=== PATIENT | female | born 1940 | race Caucasian/White ===

== ENCOUNTER 2023-07-23 15:47 | Outpatient (CLI) | payer MEDICARE, SELFPAY | END 2023-07-23 15:48 | disposition home or self-care (01) | LOC: LKVREF 15:56 | PROVIDERS: PCP Family Medicine; Visit Provider Family Medicine | DX: D64.9 Anemia, unspecified (principal) | CPT/HCPCS: 82607 ==

== ENCOUNTER 2023-07-31 10:26 | Outpatient (CLI) | payer MEDICARE, SELFPAY ==
--- NOTE | 2023-07-31 11:55 | W.ANESCHARGE ---
Anesthesia Charges Start Date/Time Anesthesia Start Date: 07/31/23 Anesthesia Start Time: 11:33 Stop Date/Time Anesthesia Stop Date: 07/31/23 Anesthesia Stop Time: 12:26 Summary Extremes of Age - Over 70 or under 1: MDA
--- NOTE | 2023-07-31 12:32 | W.ANESCHARGE ---
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
== END 2023-07-31 10:27 | disposition home or self-care (01) ==
LOC: OP CLINIC 10:32
PROVIDERS: PCP Family Medicine; Visit Provider Surgery
DX: D50.9 Iron deficiency anemia, unspecified (principal); K57.30 Diverticulosis of large intestine without perforation or abscess without bleeding; K44.9 Diaphragmatic hernia without obstruction or gangrene; K31.7 Polyp of stomach and duodenum; K25.9 Gastric ulcer, unspecified as acute or chronic, without hemorrhage or perforation
CPT/HCPCS: 00813; 43239; 45378; 88305; 88313; 88341; 88342; 99100; J2704

== ENCOUNTER 2023-10-15 12:49 | Outpatient (CLI) | payer MEDICARE, SELFPAY | END 2023-10-15 12:50 | disposition home or self-care (01) | LOC: LKVREF 12:52 | PROVIDERS: PCP Family Medicine; Visit Provider Family Medicine | DX: K25.9 Gastric ulcer, unspecified as acute or chronic, without hemorrhage or perforation (principal); K44.9 Diaphragmatic hernia without obstruction or gangrene; R06.83 Snoring | CPT/HCPCS: 84443 ==

== ENCOUNTER 2023-11-06 12:14 | Outpatient (CLI) | payer MEDICARE, SELFPAY ==
--- NOTE | 2023-11-06 12:38 | W.ANESCHARGE ---
Anesthesia Charges Start Date/Time Anesthesia Start Date: 11/06/23 Anesthesia Start Time: 12:40 Stop Date/Time Anesthesia Stop Date: 11/06/23 Anesthesia Stop Time: 12:59 Summary Extremes of Age - Over 70 or under 1: MDA
--- NOTE | 2023-11-06 13:05 | W.ANESCHARGE ---
Anesthesia Charges Start Date/Time Anesthesia Start Date: 11/06/23 Anesthesia Start Time: 12:40 Stop Date/Time Anesthesia Stop Date: 11/06/23 Anesthesia Stop Time: 12:59
== END 2023-11-06 12:15 | disposition home or self-care (01) ==
LOC: OP CLINIC 12:14
PROVIDERS: PCP Family Medicine; Visit Provider Surgery
DX: K22.10 Ulcer of esophagus without bleeding (principal); K44.9 Diaphragmatic hernia without obstruction or gangrene; K31.7 Polyp of stomach and duodenum; Z87.11 Personal history of peptic ulcer disease
CPT/HCPCS: 00731; 43235; 99100; J2704

== ENCOUNTER 2023-11-21 13:55 | Outpatient (CLI) | payer MEDICARE, SELFPAY ==
--- NOTE | 2023-11-21 14:00 | CRLHL7_ITS ---
For Patients: As a result of the Century Cures Act, medical imaging exams and procedure reports are released immediately into your electronic medical record. You may view this report before your referring provider. If you have questions, please contact your health care provider. INDICATION: Thyroid cancer. Gastric ulcer. Evaluation of hiatal hernia. TECHNIQUE: CT chest without contrast. COMPARISON: None. FINDINGS: Lungs and pleura: No suspicious nodules or infiltrates. Scattered small bands of atelectasis or scarring. No pleural effusions, pleural thickening, or pneumothorax. Heart and vasculature: Heart size is normal. Thoracic aorta and pulmonary artery are normal in caliber. Trace coronary artery calcification. Lymph nodes/mediastinum: No mediastinal, hilar, or axillary adenopathy. [id number] hiatal hernia. Chest wall: No masses. Upper abdomen: No significant findings. Bones: Mild thoracic spondylosis. IMPRESSION: 1. No acute pulmonary findings. 2. Moderate to large hiatal hernia. Please note that all CT scans at this facility use dose modulation, iterative reconstruction, and/or weight-based dosing when appropriate to reduce radiation dose to as low as reasonably achievable. Dictated by Leonides De Jesus MD @ 11/22/2023 12:56:45 PM (Electronically Signed)
== END 2023-11-21 13:56 | disposition home or self-care (01) ==
PROVIDERS: PCP Family Medicine; Visit Provider Family Medicine
DX: K25.9 Gastric ulcer, unspecified as acute or chronic, without hemorrhage or perforation (principal); K44.9 Diaphragmatic hernia without obstruction or gangrene; R13.10 Dysphagia, unspecified
CPT/HCPCS: 71250

== ENCOUNTER 2023-12-24 11:04 | Outpatient (CLI) | payer MEDICARE, SELFPAY | END 2023-12-24 11:05 | disposition home or self-care (01) | PROVIDERS: PCP Family Medicine; Visit Provider Family Medicine | DX: D64.9 Anemia, unspecified (principal); C73 Malignant neoplasm of thyroid gland; Z13.21 Encounter for screening for nutritional disorder; K21.9 Gastro-esophageal reflux disease without esophagitis | CPT/HCPCS: 80053; 80061; 82652; 82728; 83540; 83550 ==

== ENCOUNTER 2024-07-10 12:55 | Outpatient (CLI) | payer MEDICARE, SELFPAY ==
--- NOTE | 2024-07-10 13:00 | CRLHL7_ITS ---
For Patients: As a result of the Century Cures Act, medical imaging exams and procedure reports are released immediately into your electronic medical record. You may view this report before your referring provider. If you have questions, please contact your health care provider. INDICATION: BILATERAL SCREENING MAMMOGRAM, ASYMPTOMATIC 84 Y/O FEMALE COMPARISON: 02/04/19, 12/03/17, 09/12/16 TECHNIQUE: CC and MLO views were obtained. These mammographic images have been obtained using full-field digital technique. These mammographic images were interpreted with the benefit of computer aided detection and tomosynthesis. BREAST COMPOSITION: There are scattered areas of fibroglandular density. FINDINGS: No suspicious findings. ASSESSMENT: BI-RADS 1 Negative RECOMMENDATION: Annual screening mammogram. A lay language report of this examination will be provided to the patient. Dictated by: Ross Alberto MD @ 07/18/2024 13:05:31 (Electronically Signed)
--- NOTE | 2024-07-10 13:30 | CRLHL7_ITS ---
For Patients: As a result of the Century Cures Act, medical imaging exams and procedure reports are released immediately into your electronic medical record. You may view this report before your referring provider. If you have questions, please contact your health care provider. DXA BONE MINERAL DENSITY STUDY Current height (in): 64. Weight (lb): 165. Menopause age: 36. Ethnicity: White. 1. Have you had a previous hip or vertebral fracture? Yes. 2. Have you had any fractures during your adult life which did not result from significant trauma (e.g., auto accident)? Yes. 3. Did either of your parents have a hip fracture? No. 4. Do you smoke? No. 5. Have you ever taken Glucocorticoids? No. 6. Do you have rheumatoid arthritis? No. 7. Do you have secondary osteoporosis? No. 8. Do you drink 3 or more alcoholic drinks per day? No. 9. Are you being treated for osteoporosis? No. 10. Have you ever taken any of the following medications: Actonel, Evista, Fosamax, Miacalcin, Reclast, Boniva, Forteo, HRT (i.e. estrogen/hormone therapy), Protelos, Prolia, Vitamin D, Calcium, other ??? please specify. ANSWER: Yes, Vitamin D and Calcium. 11. Do you have any of the following medical conditions: Anorexia or bulimia, asthma or emphysema, end stage renal disease, hyperparathyroidism, any seizure disorders, cancer, inflammatory bowel diseases, hysterectomy, other ??? please specify. ANSWER: Yes, Partial Hysterectomy age 36. 12. What was your maximum height (inches)? 65. 13. Do you perform weight bearing exercise regularly? No. 14. Do you regularly consume dairy products? No. 15. Do you drink caffeinated beverages? Yes. 16. At what age did your period start? 10. 17. Are you premenopausal? No. 18. How many full term pregnancies have you had? 2. 19. Have you ever missed your period for more than 6 months in a row (not including or menopause)? No. TECHNIQUE: Bone mineral density study was performed using the [employer]. FINDINGS: The results of the study expressed as bone mineral density (BMD) are as follows: Lumbar spine L1 to L4: BMD: 1.346 g/cm2. T-score: 2.7. Z-score: 5.6. Neck Left: BMD: 0.905 g/cm2. T-score: 0.5 . Z-score: 3.0. Right: BMD: 0.890 g/cm2. T-score: 0.4. Z-score: 2.9. Total Left: BMD: 1.145 g/cm2. T-score: 1.7. Z-score: 4.0. Right: BMD: 1.078 g/cm2. T-score: 1.1. Z-score: 3.4. IMPRESSION: Normal bone density. Darshana Urbina M.D. Diagnostic Radiologist [email or web address] [email or web address] DW/Dictated by: Darshana Urbina MD @ 07/11/2024 7:36:00 AM (Electronically Signed)
== END 2024-07-10 12:56 | disposition home or self-care (01) ==
LOC: MAMMO 12:56
PROVIDERS: PCP Family Medicine; Visit Provider Family Medicine
DX: Z12.31 Encounter for screening mammogram for malignant neoplasm of breast (principal); Z78.0 Asymptomatic menopausal state
CPT/HCPCS: 77063; 77067; 77080

== ENCOUNTER 2024-07-18 09:24 | Outpatient (CLI) | payer MEDICARE, SELFPAY | END 2024-07-18 09:25 | disposition home or self-care (01) | LOC: NFLDREF 07-21 04:00 | PROVIDERS: PCP Family Medicine; Referring Provider Family Medicine; Visit Provider Family Medicine | DX: R73.03 Prediabetes (principal); E78.00 Pure hypercholesterolemia, unspecified; R53.83 Other fatigue; F41.9 Anxiety disorder, unspecified | CPT/HCPCS: 80053; 80061; 84443 ==

== ENCOUNTER 2024-09-15 15:01 | Outpatient (CLI) | payer MEDICARE, SELFPAY | END 2024-09-15 15:02 | disposition home or self-care (01) | PROVIDERS: PCP Family Medicine; Visit Provider Family Medicine | DX: D64.9 Anemia, unspecified (principal); D72.819 Decreased white blood cell count, unspecified; N39.0 Urinary tract infection, site not specified; B96.20 Unspecified Escherichia coli [E. coli] as the cause of diseases classified elsewhere; Z79.899 Other long term (current) drug therapy | CPT/HCPCS: 82607; 82746; 87086 ==

== ENCOUNTER 2024-09-29 14:02 | Outpatient (CLI) | payer MEDICARE, SELFPAY | END 2024-09-29 14:03 | disposition home or self-care (01) | LOC: NFLDREF 10-01 02:06 | PROVIDERS: PCP Family Medicine; Referring Provider Family Medicine; Visit Provider Internal Medicine | DX: R30.0 Dysuria (principal); N30.00 Acute cystitis without hematuria | CPT/HCPCS: 87086 ==

== ENCOUNTER 2024-12-23 20:54 | Outpatient (CLI) | payer MEDICARE, SELFPAY | END 2024-12-23 20:55 | disposition home or self-care (01) | LOC: SLEEP 20:55 | PROVIDERS: PCP Internal Medicine; Visit Provider Internal Medicine | DX: G47.33 Obstructive sleep apnea (adult) (pediatric) (principal) | CPT/HCPCS: 95810 ==

== ENCOUNTER 2025-03-09 07:33 | Outpatient (CLI) | payer MEDICARE, SELFPAY | END 2025-03-09 07:34 | disposition home or self-care (01) | PROVIDERS: PCP Internal Medicine; Visit Provider Internal Medicine | DX: R73.03 Prediabetes (principal); E78.5 Hyperlipidemia, unspecified; E03.9 Hypothyroidism, unspecified | CPT/HCPCS: 80053; 80061; 84443 ==

== ENCOUNTER 2025-03-12 12:14 | Outpatient (CLI) | payer MEDICARE, SELFPAY | END 2025-03-12 12:15 | disposition home or self-care (01) | LOC: NFLDREF 12:15 | PROVIDERS: PCP Internal Medicine; Visit Provider Internal Medicine | DX: R73.03 Prediabetes (principal) | CPT/HCPCS: 82043; 82570 ==